=== PATIENT | female | born 1950 | race Hispanic/Latino ===

== ENCOUNTER → 2025-05-26 | Day surgery (SDC) | payer OTHER ==
[2025-05-17 12:18] LABS: BASOPHILS % 0.8 % (0.0-1.0); EOSINOPHILS % 4.1 % (0.0-6.0); LYMPHOCYTES % 28.3 % (18.0-39.1); MONOCYTES % 8.1 % (4.4-11.3); NEUTROPHILS % 58.5 % (38.7-80.0); RED CELL DISTRIBUTION WIDTH 14.2 % (11.7-14.4)
[~2025-05-26] MED LIST: ALENDRONATE SOD70 MG PO; EPHEDRINE SULFATE INJ 50 MG/ML VIAL ONE; EYE MULTIVITAM1 EAC4 PO; LIDOCAINE HCL 2% LOCAL INJ 5 ML SDV VIAL INJ ONE; LIPITOR10 MG PO; OMEPRAZOLE40 MG PO; PHENYLEPHRINE HCL 1% 10 MG/ML VIAL ONE; PIOGLITAZONE HC45 MG PO; PROPOFOL IV EMULSION 10 MG/ML 20 ML VIAL ONE; SODIUM CHLORIDE 0.9% 100 ML ONE; SODIUM CHLORIDE 0.9% INJ 10 ML VIAL ONE
[2025-05-26] MEDS: LACTATED RINGER'S 1,000 ML ONE (08:31)
[2025-05-26 09:43] VITALS: TEMP 97
[2025-05-26 10:05] VITALS: BP 113/55; PULSE 64; RESP 18; O2SAT 100
== END | disposition home or self-care (01) ==
LOC: OR 06:30
PROVIDERS: ATTEND Internal Medicine Gastroenterology
DX: Z12.11 Encounter for screening for malignant neoplasm of colon (principal); K57.30 Diverticulosis of large intestine without perforation or abscess without bleeding; K64.8 Other hemorrhoids; E11.9 Type 2 diabetes mellitus without complications; E78.5 Hyperlipidemia, unspecified; M06.9 Rheumatoid arthritis, unspecified; Z78.9 Other specified health status; Z01.810 Encounter for preprocedural cardiovascular examination; Z01.812 Encounter for preprocedural laboratory examination; Z79.84 Long term (current) use of oral hypoglycemic drugs; Z79.899 Other long term (current) drug therapy; Z68.29 Body mass index [BMI] 29.0-29.9, adult; Z71.3 Dietary counseling and surveillance
CPT/HCPCS: 36415 ×2; 82948; 85025; 93005; G0121; J2003; J2371; J2704; J7050; J7121; 45378